=== PATIENT | male | born 1940 | race Caucasian/White ===

== ENCOUNTER 2016-08-10 05:33 | Day surgery (SDC) | payer MEDICARE ==
[~2016-08-10 05:33] MED LIST: ACTOS30 MG; ADVAIR 2501 DISK W/D; ADVAIR 2501 DISK W/D IH; ALLOPURINOL100 MG PO; AMLODIPINE-BEN1 EAC3 PO; BAYER ASPIRIN325 MG; CARDURA8 MG PO; CENTRUM SILVER1 TA; COLACE100 MG PO; DIPYRIDAMOLE75 MG; DUONEB 2.5-0.5 M3 ML IH; FISH OIL 1,0001 CA1; FISH OIL 1,0001 CA1 PO; FUROSEMIDE40 MG; FUROSEMIDE40 MG PO; GEMFIBROZIL600 MG; GEMFIBROZIL600 MG PO; HYDRALAZINE HCL10 MG PO; IRON325 ( 65 PO; KLOR-CON 1010 MEQ; KLOR-CON-1010 MEQ PO; LANTUS100 U/ML SC; LEVAQUIN750 MG PO; LOTREL PO; METAMUCIL1 PKT PO; MULTIVITAMIN1 TAB PO; NORCO 5/325 TAB1 TAB PO; NORCO 5/3251 TAB PO; NORVASC10 MG; NORVASC10 MG PO; PROCRIT20000 U/ML IJ; TYLENOL325 MG PO; VITAMIN B12 PO; VITAMIN B12500 MCG; VITAMIN D-3400 UNIT; VITAMIN D-3400 UNIT PO; ZOCOR80 MG; ZYLOPRIM100 M1 PO; [UNRECOGNIZED DRUG - OTHER]
[2016-08-10] MEDS ORDERED: LIPITOR20 M1 PO (06:14)
[2016-08-10] MEDS ORDERED: COREG12.5 M1 PO (06:15)
[2016-08-10] MEDS ORDERED: CATAPRES0.3 M1 PO (06:16)
[2016-08-10] MEDS ORDERED: OMEPRAZOLE20 M3 PO (06:17)
[2016-08-10] MEDS ORDERED: TERAZOSIN HCL5 MG PO (06:20)
[2016-08-10] MEDS ORDERED: COZAAR50 M1 PO (06:20)
[2016-08-10] MEDS ORDERED: DONEPEZIL HCL5 M2 PO (06:20)
[2016-08-10] MEDS ORDERED: TRIPHROCAPS SOFT1 M1 PO (06:21)
[2016-08-10] MEDS ORDERED: ASPIRIN81 M1 PO (06:22)
[2016-08-10] MEDS ORDERED: CALCIUM ACETAT667 M3 PO (06:22)
[2016-08-10] MEDS ORDERED: IPRATROPIU0.2 MG/1 M INH (06:23)
[2016-08-10] MEDS ORDERED: APIDRA100 UNIT/1 SC (06:23)
[2016-08-10] MEDS ORDERED: LEVEMIR100 UNITS/ SC ×2 (06:24)
[2016-08-10] MEDS ORDERED: VITAMIN B122500 MC1 PO (07:11)
[2016-08-10] MEDS ORDERED: VITAMIN D31000 UNI3 PO (07:11)
[2016-08-10] MEDS ORDERED: FISH OIL 1,2001 EAC4 PO (07:12)
[2016-08-10] MEDS ORDERED: [UNRECOGNIZED DRUG - OTHER] PO (07:12)
== END 2016-08-10 09:35 ==
LOC: RADSP 05:33 → SHSC 05:36
PROC: 037Y3ZZ Dilation of Upper Artery, Percutaneous Approach (ICD-10-PCS; principal; 2016-08-10)
DX: I87.1 Compression of vein (principal)
CPT/HCPCS: C1725; C1769; J2250; J3010; Q9967